=== PATIENT | female | born 1945 | race Hispanic/Latino ===

== ENCOUNTER → 2017-03-06 | Outpatient (CLI) | payer MEDICARE ==
--- NOTE | 2017-03-06 17:40 | Diagnostic Imaging Report ---
PROCEDURE:X-RAY LEFT KNEE, THREE OR MORE VIEWS COMPARISON:None. INDICATIONS:LEFT MEDIAL KNEE PAIN FINDINGS: The bones are well-mineralized. There are no fractures, subluxations, lytic or blastic lesions. Sinuses are preserved. There is no evidence of a joint effusion. CONCLUSION: Unremarkable knee films. Dhruv Aguilar M.D. Dictated by: Dhruv Aguilar M.D. on 03/06/2017 at 17:48 Electronically approved by: Dhruv Aguilar M.D. on 03/06/2017 at 17:48
== END ==
LOC: RAD 14:12
PROVIDERS: ATTEND Internal Medicine Endocrinology, Diabetes & Metabolism
DX: M25.562 Pain in left knee (principal)